=== PATIENT | female | born 1965 | race Caucasian/White ===

== ENCOUNTER 2024-10-11 16:18 | Emergency (ER) | payer OTHER ==
[~2024-10-11] VITALS: Ht 160 cm; Wt 68.0 kg
[2024-10-11 16:21] VITALS: BP 145/84; PULSE 86; RESP 16; TEMP 37; O2SAT 99
[2024-10-11] MEDS ORDERED: IBUP-2029 MT (17:15)
== END 2024-10-11 18:52 | disposition home or self-care (01) ==
LOC: ER 16:18
DX: S43.401A Unspecified sprain of right shoulder joint, initial encounter (principal); Z88.5 Allergy status to narcotic agent; Y08.89XA Assault by other specified means, initial encounter; Y93.89 Activity, other specified; Y92.89 Other specified places as the place of occurrence of the external cause; Y99.8 Other external cause status
CPT/HCPCS: 73030; 99283